=== PATIENT | female | born 1940 | race Two or more races ===

== ENCOUNTER 2021-04-04 05:55 | Day surgery (SDC) | payer OTHER ==
[~2021-04-04 05:55] MED LIST: CRESTOR5 MG PO; FARXIGA10 MG PO; GLIMEPIRIDE2 MG PO; MULTIVIT PO; NORVASC10 MG PO; SINGULAIR10 MG PO; TRILIPIX135 MG PO
[2021-04-04] MEDS ORDERED: MACROBID 100 M100 MG PO (10:26)
[2021-04-04] MEDS ORDERED: ULTRACET PO (10:26)
== END 2021-04-04 12:05 | disposition home or self-care (01) ==
LOC: CIR.AMB 05:55
PROVIDERS: ATTEND Obstetrics & Gynecology Gynecology
DX: N81.3 Complete uterovaginal prolapse (principal)

== ENCOUNTER 2021-04-05 17:28 | Emergency (ER) | payer OTHER ==
[~2021-04-05] VITALS: Ht 152.4 cm; Wt 51.7 kg
[~2021-04-05 17:28] MED LIST changes: +MACROBID 100 M100 MG PO; +ULTRACET PO
== END 2021-04-05 19:35 | disposition home or self-care (01) ==
LOC: ER 17:28
DX: T83.098A Other mechanical complication of other urinary catheter, initial encounter (principal)